=== PATIENT | female | born 1975 | race Caucasian/White ===

== ENCOUNTER 2021-03-30 11:48 | Emergency (ER) | payer OTHER, SELFPAY ==
[2021-03-30 12:21] VITALS: BP 173/68; PULSE 93; RESP 16; TEMP 36.8; O2SAT 98; BMI 35.8
--- NOTE | 2021-03-30 13:17 | ED.SKABFB ---
HPI - Skin/Abscess/Foreign Bdy General Chief complaint: Skin/Abscess/Foreign Body Stated complaint: Abcess Time Seen by Provider: 03/30/21 13:11 Source: patient Mode of arrival: ambulatory Limitations: no limitations History of Present Illness HPI narrative: Patient is a 45-year-old female with no significant past medical history who presents with a painful abscess under her right axilla. She said it started wheezing this morning. She states it has been there for about a week, she went to her primary care doctor, they started her on doxycycline which she has been taking every day. She states it is very painful, denies fevers. She has been using warm compresses. Related Data Previous Rx's Medication Instructions Recorded cephalexin [Keflex] 750 mg PO Q12H 10 Days #20 cap 03/30/21 Allergies Allergy/AdvReac Type Severity Reaction Status Date / Time Sulfa (Sulfonamide AdvReac Nausea Verified 03/30/21 12:24 Antibiotics) Review of Systems Review of Systems: Yes all other systems are reviewed and are negative [facility] Social History Social History Advance Directives: No Advance Directives Information Provided: No Patient : No Physical Exam Vital Signs: Vital Signs: Last Vital Signs Temp 98.3 F 03/30/21 12:21 Pulse 93 03/30/21 12:21 Resp 16 03/30/21 12:21 BP 173/68 H 03/30/21 12:21 Pulse Ox 98 03/30/21 12:21 Body Mass Index 35.8 Const: General: cooperative, healthy appearing, comfortable and anxious (2/2 pain) Nutritional Appearance: average body habitus Orientation/consciousness: patient oriented x3 Eyes: General: appearance normal, both eyes and all related structures Resp: Effort & Inspection: normal respiratory effort and able to speak in complete sentences Neuro: General: patient oriented x3 Extrem: Other: Right axilla, 2 cm round, hardened area with slight fluctuance, no erythema. Course Course Course Narrative: Attempted to aspirate with [place] Noe, scant amount of pus removed with a small amount of bleeding, estimated blood loss 1 mL. Covered with gauze and gave patient is instruction to keep applying warm compresses, take both antibiotics and follow up with her PCP if no resolution. Will give Toradol x1 dose in ED before discharge. Discharge Plan Discharge Clinical Impression: Abscess of skin or subcutaneous tissue Qualifiers: Site of cutaneous abscess: extremity Site of cutaneous abscess of extremity: axilla Laterality: right Qualified Code(s): L02.411 - Cutaneous abscess of right axilla Patient Disposition: Home, Self-Care Instructions: Abscess (ED) Additional Instructions: As discussed, please continue to use warm compresses. I am also sending a 2nd antibiotic to your pharmacy as the abscess is undrainable at this point. I have given you medication called Toradol in the ED today, it is an NSAID so please be sure not to use any NSAIDs until at least 8 hours from the time he received the Toradol. NSAIDs include Aleve, Motrin, Advil, ibuprofen. Prescriptions: New cephalexin [Keflex] 750 mg capsule 750 mg PO Q12H 10 Days Qty: 20 RF: 0 Referrals: Renée Keys MD [Primary Care Provider] - 2 days (f/u abscess if not resolved)
[2021-03-30] MEDS: Ketorolac Tromethamine 30 MG/ML VIAL IM (13:28)
== END 2021-03-30 13:31 | disposition home or self-care (01) ==
PROVIDERS: Emergency Provider Emergency Medicine Emergency Medical Services; PCP Pediatrics
DX: L02.411 Cutaneous abscess of right axilla (principal)
CPT/HCPCS: 10060; 96372; 99283; 99284; J1885

== ENCOUNTER 2022-05-26 18:55 | Emergency (ER) | payer OTHER, SELFPAY ==
[2022-05-26] VITALS (8 sets, daily range): BP systolic 130–167; BP diastolic 44–59; PULSE 70–96; RESP 17–22; TEMP 36.8–37; O2SAT 98–100; BMI 37.6
[2022-05-26 19:28] LABS: MANUAL DIFF FLAG NO
--- NOTE | 2022-05-26 19:33 | PC.NURSE ---
pt reports having heavy menses for years, OBGYN started pt on norethidone, pt has had heavier periods, this current menses lasted 12 days. painless heavy vaginal bleeding, pad an hour until thursday with large clots. when pt began TXA on thursday evening, the clots subsided and the flow decreased. 2 pad changes today, c/o fatigue and weakness. pt scheduled for iron infusion 06/01/22.
[2022-05-26 19:38] LABS: Basophils Percent Auto 0.3 % (0-2); Eosinophils Absolute Auto 0.1 X10*3/uL (0.0-0.4); Eosinophils Percent Auto 1.8 % (0-4); Imm Gran Abs Auto 0.02 X10*3/uL (0.00-0.03); Imm Gran Pct Auto 0.3 % (0.0-0.4); Lymphocytes Absolute Auto 1.6 X10*3/uL (1.2-4.9); Lymphocytes Percent Auto 20.8 % (20-40); Mean Corpuscular HGB Conc 26.8 g/dl (31.0-35.0); Mean Corpuscular Volume 74.7 fL (80.0-98.0); Mean Platelet Volume 9.8 fL (9.4-12.3); Monocytes Absolute Auto 0.5 X10*3/uL (0.1-1.2); Monocytes Percent Auto 6.4 % (2-11); Neutrophils Absolute Auto 5.4 x10*3/uL (2.0-8.3); Neutrophils Percent Auto 70.4 % (45-73); Platelet Count 407 X10*3/uL (160-400); Red Blood Count 2.25 X10*6/uL (4.20-5.50); White Blood Count 7.6 X10*3/uL (4.8-10.8)
[2022-05-26 19:43] LABS: COVID-19 Test Negative (Negative); IDNOW Serial# 16C4AD1C
[2022-05-26 19:48] LABS: Hematocrit 16.8 % (37.0-47.0); Hemoglobin 4.5 g/dl (12.0-16.0)
--- NOTE | 2022-05-26 20:00 | PC.NURSE ---
Reported critical labs to provider anwer and weatherization field technician of h/h 4.5 and 16.8
[2022-05-26 20:13] LABS: Alanine Aminotransferase 6 U/L (0-31); Albumin Level 4.2 g/dL (3.5-5.0); Alkaline Phosphatase 60 U/L (39-117); Anion Gap 14 (12-20); Aspartate Amino Transferase 9 U/L (5-31); Bilirubin Total 0.3 mg/dL (0.0-1.0); Blood Urea Nitrogen 6 mg/dL (9-16); Calcium 8.7 mg/dL (8.4-10.2); Carbon Dioxide 20 mmol/L (22-29); Chloride 108 mmol/L (96-108); Creatinine Clr Calc Pharmacy 112.6; Estimated Glomerular Filt Rate > 60; Glucose Random 123 mg/dL (60-115); Potassium 4.2 mmol/L (3.3-5.1); Sodium 138 mmol/L (135-145); Total Protein 6.9 g/dL (6.5-8.0)
--- NOTE | 2022-05-26 20:42 | ED_ITS ---
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 Patient been feeling weak dizzy tired for last few days patient used to bleed 10-12 pads a day for last 2-3 months except for last 2 days patient has been bleeding only to 2-3 pads a day after started on TXA patient denies any chest pain does have exertion dyspnea. Patient was taking iron pills but unable to tolerated plan to get iron transfusion next week Related Data Home Medications Medication Instructions Recorded Confirmed albuterol sulfate 90 mcg/actuation inhalation 04/11/22 aerosol inhaler (ProAir HFA) gabapentin 300 mg capsule 600 mg PO BEDTIME 04/11/22 tranexamic acid 650 mg tablet 1 tab PO TID 05/26/22 05/26/22 Previous Rx's Medication Instructions Recorded ferrous sulfate 325 mg (65 mg 325 mg PO BID #30 tabs 05/27/22 iron) tablet Allergies Allergy/AdvReac Type Severity Reaction Status Date / Time Sulfa (Sulfonamide AdvReac Nausea Verified 05/26/22 19:10 Antibiotics) Review of Systems Review of Systems: Yes all other systems are reviewed and are negative [facility] Past Medical History Medical History Restless leg Social History Social History Advance Directives: No Advance Directives Information Provided: No Physical Exam ED Vital Signs: Vital Signs - 24 hr 05/26/22 19:10 05/26/22 19:41 05/26/22 21:55 Temperature 98.3 F 98.6 F 98.5 F Pulse Rate 96 87 77 Respiratory Rate 18 22 H 19 Blood Pressure 167/59 H 153/56 H 137/49 L Pulse Oximetry 98 99 100 Oxygen Delivery Method Room Air Room Air Room Air 05/26/22 21:57 05/26/22 22:19 05/26/22 22:19 Temperature 98.5 F 98.4 F 98.4 F Pulse Rate 78 79 78 Respiratory Rate 19 20 20 Blood Pressure 137/49 L 130/46 L 130/46 L Pulse Oximetry 100 Oxygen Delivery Method Room Air 05/26/22 22:36 05/26/22 22:57 05/26/22 23:52 Temperature 98.3 F Pulse Rate 77 71 71 Respiratory Rate 17 21 H 19 Blood Pressure 134/44 L 134/50 L Pulse Oximetry 99 100 Oxygen Delivery Method Room Air Room Air 05/26/22 23:52 05/27/22 00:08 05/27/22 00:19 Temperature 98.3 F 98.4 F 98.3 F Pulse Rate 70 70 71 Respiratory Rate 18 20 18 Blood Pressure 134/50 L 134/50 L 131/41 L Pulse Oximetry Oxygen Delivery Method 05/27/22 01:28 05/27/22 01:30 05/27/22 01:38 Temperature 98.3 F 98.4 F Pulse Rate 71 70 Respiratory Rate 19 16 Blood Pressure 136/48 L Pulse Oximetry 100 97 Oxygen Delivery Method Room Air Room Air BMI result Body Mass Index 37.6 Appearance: Alert. Oriented X3. No acute distress. Eyes: Pallor++ ENT: Pharynx normal. Oral Mucosa moist Neck: Normal inspection. Neck supple. CVS: Normal heart rate and rhythm. Pulses normal. Respiratory: No respiratory distress. Equal air entry bilateral, no wheezing/rales/rhonchi Abdomen: Soft and nontender. Bowel sounds are present, no mass palpable, Skin: Skin warm and dry. Normal skin color. Normal skin turgor. Extremities: No lower extremity edema. No calf tenderness Neuro: Oriented X 3. No motor deficit. Medical Decision Making MDM Narrative Medical decision making narrative: Patient has significant anemia secondary to dysfunctional uterine bleed which has decreased now. Will give 2 units of blood recheck H and H advised to follow-up with her geospatial extractor analysis Lab Data Lab results reviewed: Yes I reviewed the patient's lab results. Result diagrams: 05/26/22 19:21 05/26/22 19:21 Labs: Lab Results 05/26/22 05/26/22 05/26/22 Range/Units 19:21 19:21 19:21 WBC 7.6 (4.8-10.8) X10*3/uL RBC 2.25 L (4.20-5.50) X10*6/uL Hgb 4.5 L* (12.0-16.0) g/dl Hct 16.8 L* (37.0-47.0) % MCV 74.7 L (80.0-98.0) fL MCH 20.0 L (27.0-33.0) pg MCHC 26.8 L (31.0-35.0) g/dl RDW 20.0 H (11.0-16.0) % Plt Count 407 H (160-400) X10*3/uL MPV 9.8 (9.4-12.3) fL Immature Gran % (Auto) 0.3 (0.0-0.4) % Neut % (Auto) 70.4 (45-73) % Lymph % (Auto) 20.8 (20-40) % [place] % (Auto) 6.4 (2-11) % Eos % (Auto) 1.8 (0-4) % Baso % (Auto) 0.3 (0-2) % Lymph # (Auto) 1.6 (1.2-4.9) X10*3/uL [place] # (Auto) 0.5 (0.1-1.2) X10*3/uL Eos # (Auto) 0.1 (0.0-0.4) X10*3/uL Baso # (Auto) 0.0 (0.0-0.2) X10*3/uL Abs Immat Gran (auto) 0.02 (0.00-0.03) X10*3/uL Absolute Neuts (auto) 5.4 (2.0-8.3) x10*3/uL Absolute Nucleated RBC 0.000 (0.0-0.012) X10*3/uL Nucleated RBC % (auto) 0.0 (0.0-0.2) /100WBC Sodium 138 (135-145) mmol/L Potassium 4.2 (3.3-5.1) mmol/L Chloride 108 (96-108) mmol/L Carbon Dioxide 20 L (22-29) mmol/L Anion Gap 14 (12-20) BUN 6 L (9-16) mg/dL Creatinine 0.65 (0.5-1.4) mg/dL Estim Creat Clear Calc 112.6 Estimated GFR > 60 Random Glucose 123 H (60-115) mg/dL Calcium 8.7 (8.4-10.2) mg/dL Total Bilirubin 0.3 (0.0-1.0) mg/dL AST 9 (5-31) U/L ALT 6 (0-31) U/L Alkaline Phosphatase 60 (39-117) U/L Total Protein 6.9 (6.5-8.0) g/dL Albumin 4.2 (3.5-5.0) g/dL COVID-19 ([facility]) Negative (Negative) COVID-19 Clin Com See Note Blood Type Antibody Screen Crossmatch 05/26/22 Range/Units 19:21 WBC (4.8-10.8) X10*3/uL RBC (4.20-5.50) X10*6/uL Hgb (12.0-16.0) g/dl Hct (37.0-47.0) % MCV (80.0-98.0) fL MCH (27.0-33.0) pg MCHC (31.0-35.0) g/dl RDW (11.0-16.0) % Plt Count (160-400) X10*3/uL MPV (9.4-12.3) fL Immature Gran % (Auto) (0.0-0.4) % Neut % (Auto) (45-73) % Lymph % (Auto) (20-40) % [place] % (Auto) (2-11) % Eos % (Auto) (0-4) % Baso % (Auto) (0-2) % Lymph # (Auto) (1.2-4.9) X10*3/uL [place] # (Auto) (0.1-1.2) X10*3/uL Eos # (Auto) (0.0-0.4) X10*3/uL Baso # (Auto) (0.0-0.2) X10*3/uL Abs Immat Gran (auto) (0.00-0.03) X10*3/uL Absolute Neuts (auto) (2.0-8.3) x10*3/uL Absolute Nucleated RBC (0.0-0.012) X10*3/uL Nucleated RBC % (auto) (0.0-0.2) /100WBC Sodium (135-145) mmol/L Potassium (3.3-5.1) mmol/L Chloride (96-108) mmol/L Carbon Dioxide (22-29) mmol/L Anion Gap (12-20) BUN (9-16) mg/dL Creatinine (0.5-1.4) mg/dL Estim Creat Clear Calc Estimated GFR Random Glucose (60-115) mg/dL Calcium (8.4-10.2) mg/dL Total Bilirubin (0.0-1.0) mg/dL AST (5-31) U/L ALT (0-31) U/L Alkaline Phosphatase (39-117) U/L Total Protein (6.5-8.0) g/dL Albumin (3.5-5.0) g/dL COVID-19 ([facility]) (Negative) COVID-19 Clin Com Blood Type O Positive Antibody Screen NEGATIVE Crossmatch See Detail Discharge Plan Discharge Clinical Impression: Severe anemia, DUB (dysfunctional uterine bleeding) Patient Disposition: Home, Self-Care Instructions: Dysfunctional Uterine Bleeding (ED), Anemia (ED) Additional Instructions: Take iron pills as prescribed Follow-up with geospatial extractor analysis Prescriptions: New ferrous sulfate 325 mg (65 mg iron) tablet 325 mg PO BID Qty: 30 0RF No Action tranexamic acid 650 mg tablet 1 tab PO TID gabapentin 300 mg capsule 600 mg PO BEDTIME albuterol sulfate [ProAir HFA] 90 mcg/actuation HFA aerosol inhaler inhalation
[2022-05-26] MEDS: Acetaminophen 325 MG TABLET 650 MG PO (22:00)
[2022-05-26] MEDS: Tranexamic Acid 650 MG TABLET PO (22:11)
[2022-05-27 00:08] VITALS: BP 134/50; PULSE 70; RESP 20; TEMP 36.9
[2022-05-27 00:19] VITALS: BP 131/41; PULSE 71; RESP 18; TEMP 36.8
--- NOTE | 2022-05-27 00:52 | PC.NURSE ---
pt refusing ferrous sulfate, states she gets nausea and constipation from taking it in the past
[2022-05-27 01:28] VITALS: PULSE 71; RESP 19; O2SAT 100
[2022-05-27 01:30] VITALS: TEMP 36.8
[2022-05-27 01:38] VITALS: BP 136/48; PULSE 70; RESP 16; TEMP 36.9; O2SAT 97
[2022-05-27 01:42] VITALS: BP 136/48; PULSE 70; RESP 18; TEMP 36.8
[2022-05-27 01:42] LABS: Hematocrit 22.3 % (37.0-47.0)
[2022-05-27 01:57] LABS: Hemoglobin 6.5 g/dl (12.0-16.0)
== END 2022-05-27 02:05 | disposition home or self-care (01) ==
PROVIDERS: Emergency Provider Internal Medicine; PCP Hospitalist
DX: D64.9 Anemia, unspecified (principal); R79.89 Other specified abnormal findings of blood chemistry; N93.8 Other specified abnormal uterine and vaginal bleeding; Z79.899 Other long term (current) drug therapy; Z20.822 Contact with and (suspected) exposure to COVID-19
CPT/HCPCS: 36415; 51798; 80053; 85014; 85018; 85025; 86850; 86900; 86901; 86923; 87635; 99284; 99285; P9016

== ENCOUNTER 2023-10-29 12:36 | Outpatient (REF) | payer OTHER, SELFPAY ==
[2023-11-05 21:18] LABS: Intrinsic Factor Antibodies Negative (Negative)
== END 2023-10-29 12:37 | disposition home or self-care (01) ==
LOC: HO.HMGCLDS 12:36
PROVIDERS: PCP Pediatrics; Visit Provider Internal Medicine
DX: D51.8 Other vitamin B12 deficiency anemias (principal); D50.9 Iron deficiency anemia, unspecified
CPT/HCPCS: 36415; 82607; 85027; 86340